=== PATIENT | female | born 2000 | race Two or more races ===

== ENCOUNTER 2024-12-02 16:56 | Emergency (ER) | payer MEDICAID, OTHER ==
[~2024-12-02] VITALS: Ht 152.4 cm; Wt 59.0 kg
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
[2024-12-02 18:31] VITALS: BP 136/94; TEMP 98.5
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
[2024-12-02 19:08] LABS: Urine Protein, UAD TRACE (Negative)
[2024-12-02] MEDS ORDERED: IBUP-1455 PO (19:35)
[2024-12-02] MEDS ORDERED: HYDR-4902 PO (19:35)
[2024-12-02 19:47] VITALS: PULSE 71; RESP 16; O2SAT 99
[2024-12-02] MEDS: KETOROLAC TROMETH 60MG/2ML VIAL IM ONE (19:52)
[2024-12-02] MEDS: HYDROcodone-ACET 10/325MG TAB PO ONE (19:52)
== END 2024-12-02 19:53 | disposition home or self-care (01) ==
LOC: EDBD 16:56 → ER 17:03
DX: S63.592A Other specified sprain of left wrist, initial encounter (principal); S20.219A Contusion of unspecified front wall of thorax, initial encounter; V89.2XXA Person injured in unspecified motor-vehicle accident, traffic, initial encounter; Y93.I9 Activity, other involving external motion; Y92.488 Other paved roadways as the place of occurrence of the external cause; Y99.8 Other external cause status
CPT/HCPCS: 36415; 73090; 81003; 81025; 84702